=== PATIENT | male | born 1965 | race African-American/Black ===

== ENCOUNTER 2018-05-24 13:04 | Emergency (ER) | payer BC, MEDICAID ==
[2018-05-24] MEDS ORDERED: DIPHENHYDRAMINE HCL 50 MG/ML VIAL IV ONE (13:28)
[2018-05-24] MEDS ORDERED: FAMOTIDINE INJ/PF 20 MG/2 ML SDV IV ONE (13:28)
[2018-05-24] MEDS ORDERED: METHYLPREDNISOLONE INJ 125 MG/2 ML SDV IV ONE (13:29)
--- NOTE | 2018-05-24 13:31 | ER Document Report ---
ED Allergic Reaction - General Chief Complaint: Allergic Reaction Stated Complaint: POSSIBLE ALLERGIC REACTION Time Seen by Provider: 05/24/18 13:22 Mode of Arrival: Ambulatory Information source: Patient Notes: 52-year-old male presents the emergency department for an allergic reaction. That yesterday he took atorvastatin along with lisinopril and had swelling to his top lip. Patient denies any swelling to the tongue, to the pharynx, difficulty breathing, difficulty swallowing. Patient states that his swelling has decreased today. His family wanted him to come to the emergency department for an evaluation. Patient denies taking any other medications. Patient denies any new food, soap, detergent, lotion. No history of allergy to medication. TRAVEL OUTSIDE OF THE [place] IN LAST 30 DAYS: No - HPI Onset: Yesterday Onset/Duration: Sudden Quality of pain: No pain Severity: Mild Pain Level: Denies Identified cause: Possibly Medication Exposure: LUISA / ARB inhibitor Swelling: Lip(s) Associated symptoms: None Similar symptoms previously: No Recently seen / treated by doctor: No - Related Data Allergies/Adverse Reactions: No Known Allergies Allergy (Verified 10/05/15 16:00) Past Medical History - General Information source: Patient - Social History Smoking Status: Former Smoker Family History: Reviewed & Not Pertinent Musculoskeletal Medical History: Reports Hx Arthritis Past Surgical History: Reports: Hx Abdominal Surgery - Hernia, Hx Appendectomy - Immunizations Hx Diphtheria, Pertussis, Tetanus Vaccination: Yes Review of Systems - Review of Systems Constitutional: No symptoms reported EENT: No symptoms reported Cardiovascular: No symptoms reported Respiratory: No symptoms reported Gastrointestinal: No symptoms reported Genitourinary: No symptoms reported Male Genitourinary: No symptoms reported Musculoskeletal: No symptoms reported Skin: No symptoms reported Hematologic/Lymphatic: No symptoms reported Neurological/Psychological: No symptoms reported -: Yes All other systems reviewed and negative Physical Exam - Vital signs Vitals: Temp Pulse Resp BP Pulse Ox 98.4 F 80 18 109/72 97 05/24/18 13:19 05/24/18 13:19 05/24/18 13:19 05/24/18 13:19 05/24/18 13:19 - Notes Notes: PHYSICAL EXAMINATION: GENERAL: Well-appearing, well-nourished and in no acute distress. HEAD: Atraumatic, normocephalic. EYES: Pupils equal round and reactive to light, extraocular movements intact, sclera anicteric, conjunctiva are normal. ENT: Nares patent, oropharynx clear without exudates. Moist mucous membranes. No swelling appreciated to the lips, tongue. Patient is speaking normally. No trismus. NECK: Normal range of motion, supple without lymphadenopathy LUNGS: Breath sounds clear to auscultation bilaterally and equal. No wheezes rales or rhonchi. HEART: Regular rate and rhythm without murmurs ABDOMEN: Soft, nontender, nondistended abdomen. No guarding, no rebound. No masses appreciated. Musculoskeletal: Normal range of motion, no pitting or edema. No cyanosis. NEUROLOGICAL: Cranial nerves grossly intact. Normal speech, normal gait. Normal sensory, motor exams PSYCH: Normal mood, normal affect. SKIN: Warm, Dry, normal turgor, no rashes or lesions noted. Course - Re-evaluation Re-evalutation: 05/24/18 15:16 Patient given benadryl, solumedrol, pepcid. On re-evaluation, patient says his upper lip swelling has completely resolved. Denies difficulty breathing, difficulty swallowing. Feels fine. Patient requesting to leave. I will give him rx for epinephrine. I instructed him to discontinue the lisinopril and atorvastatin, to follow up with his primary care physician this week, and to return for worsening symptoms. Patient is agreeable with the plan of care. 05/24/18 15:20 - Vital Signs Vital signs: Temp Pulse Resp BP Pulse Ox 98.4 F 80 18 109/72 97 05/24/18 13:19 05/24/18 13:19 05/24/18 13:19 05/24/18 13:19 05/24/18 13:19 Discharge - Discharge Clinical Impression: Angioedema Qualifiers: Encounter type: initial encounter Qualified Code(s): T78.3XXA - Angioneurotic edema, initial encounter Condition: Good Disposition: HOME, SELF-CARE Additional Instructions: Discontinue lisinopril and atorvastatin. Follow up with your primary care physician this week. Return for worsening symptoms. Prescriptions: Epinephrine [Epipen] 0.3 mg IJ ONCE PRN #2 [email or web address] PRN Reason: Referrals: ROMEL BURDICK MD [Primary Care Provider] - Follow up as needed
[2018-05-24] MEDS ORDERED: ONDANSETRON HCL INJ/PF 4 MG/2 ML SDV ONE (13:42)
[2018-05-24] MEDS ORDERED: ONDANSETRON HCL INJ/PF 4 MG/2 ML SDV IV ONE (13:43)
[2018-05-24 16:07] VITALS: BP 121/76
== END 2018-05-24 15:58 | disposition home or self-care (01) ==
LOC: ER 13:04
DX: T78.3XXA Angioneurotic edema, initial encounter (principal); X58.XXXA Exposure to other specified factors, initial encounter
CPT/HCPCS: 99283; 96374; 96375; J1200; J2930; J2405; S0028